=== PATIENT | female | born 1985 | race African-American/Black ===

== ENCOUNTER 2022-10-15 09:33 | Emergency (ER) | payer OTHER ==
[2022-10-15 10:05] LABS: EPI CELLS >36 /uL (0-25.1); HCG,QUALITATIVE URINE Negative; HYALINE CASTS 1 /uL (0-3.1); URINE APPEARANCE TURBID; URINE BACTERIA >9,000 /uL (0-1359); URINE BILIRUBIN NEGATIVE (NEGATIVE); URINE COLOR YELLOW; URINE GLUCOSE (UA) NEGATIVE (NEGATIVE); URINE KETONE NEGATIVE (NEGATIVE); URINE LEUK ESTERASE 3+ (NEGATIVE); URINE NITRITE NEGATIVE (NEGATIVE); URINE PROTEIN 3+ (NEGATIVE); URINE WBC 11674 /uL (0-25.8)
[2022-10-15 10:40] LABS: URINE RBC 108 /uL (0-23.9)
[2022-10-15] MEDS ORDERED: SODIUM CHLORIDE 1,000 ML IV STA (10:50)
[2022-10-15] MEDS ORDERED: CEFTRIAXONE 1,000 MG in DEXTROSE 5%-WATER - 50 ML IVPB ONE (10:57)
[2022-10-15] MEDS ORDERED: morphine CARPU-JECT 4 MG/1 ML DISP.SYRIN IVPUSH ONE (10:59)
[2022-10-15] MEDS ORDERED: morphine SULFATE 4 MG/ML VIAL ONE (11:05)
[2022-10-15] MEDS ORDERED: CEFTRIAXONE 1 GM/50 ML BAG ONE (11:05)
[2022-10-15 11:57] LABS: BASO % 0.4 % (0-2.0); EOS % 0.3 % (0-4.5); HEMATOCRIT 27.4 % (32.4-45.2); HEMOGLOBIN 8.2 GM/dL (10.7-15.3); LYMPH % 13.4 % (8-40); MEAN CELL VOLUME 57.2 fl (80-96); MEAN PLT VOLUME 9.4 fl (7.5-11.1); MONO % 14.9 % (3.8-10.2); PLATELET COUNT 310 10^3/uL (134-434); RDW 20.5 % (11.6-15.6); WHITE BLOOD COUNT 11.2 K/mm3 (4.0-10.0)
[2022-10-15 12:00] LABS: MCH 17.1 pg (25.7-33.7)
[2022-10-15 12:25] LABS: BLOOD UREA NITROGEN 12.1 mg/dL (7-18)
[2022-10-15 12:28] LABS: CREATININE 1.1 mg/dL (0.55-1.3)
[2022-10-15 12:29] LABS: BILIRUBIN,TOTAL 0.8 mg/dL (0.2-1); TOT PROT 8.2 g/dl (6.4-8.2)
[2022-10-15 12:49] LABS: ANISOCYTOSIS 3+; MACROCYTOSIS 0; OVALOCYTE 1+
[2022-10-15 13:41] VITALS: BP 125/75; PULSE 92; RESP 18; TEMP 97.5
== END 2022-10-15 13:41 | disposition home or self-care (01) ==
LOC: JER 09:33
PROC: 3E033GC Introduction of Other Therapeutic Substance into Peripheral Vein, Percutaneous Approach (ICD-10-PCS; principal; 2022-10-15)
DX: N12 Tubulo-interstitial nephritis, not specified as acute or chronic (principal); D64.9 Anemia, unspecified
CPT/HCPCS: 36415; 80053; 81003; 84703; 85025; 87040; 87086; 87186; 99284-25